=== PATIENT | male | born 1995 | race Two or more races ===

== ENCOUNTER 2020-03-27 15:04 | Emergency (ER) | payer BC ==
[~2020-03-27] VITALS: Ht 170.2 cm; Wt 83.9 kg
--- NOTE | 2020-03-27 15:40 | NUR ---
ED Nurse Note: pt presents to ED with congestion and cough, states that he tested + for COVID-19. pt is noted to be febrile on triage. he is also experiencing loss of taste & smell, no N/V/D at this time
[2020-03-27 15:41] VITALS: BP 136/90
--- NOTE | 2020-03-27 16:13 | Emergency Room Report ---
History of Present Illness General Chief Complaint: Upper Respiratory Illness Source: Patient (Anselmo Harris) Present Illness HPI 24-year-old male who just tested positive for Covid this morning due to exposure to a coworker and has been having loss of smell, cough and congestion, shortness of breath and fever x3 days. Here requesting medication for his symptoms. Denies any headache and dizziness at this time. Complains of few bouts of nonbloody diarrhea. Denies nausea vomiting. Is sitting comfortably with O2 sats being above 97%. Reports that he usually vapes and smokes marijuana however has stopped smoking for the past 3 days. Otherwise does not have any other comorbidities. Denies chest pain shortness of breath at this time. (Anselmo Harris) Allergies: Coded Allergies: No Known Allergies (Unverified , 03/27/20) COVID-19 Screening Contact w/high risk pt: No Experienced COVID-19 symptoms?: No COVID-19 Testing performed CONTACT CENTER ENGINEER: Yes COVID-19 Screening: Positive COVID-19 COVID-19 Testing Source: nasal (Anselmo Harris) Patient History Past Medical History: see triage record Past Surgical History: none Pertinent Family History: none Immunizations: UTD Reviewed Nursing Documentation: PMH: Agreed; PSxH: Agreed (Anselmo Harris) Nursing Documentation-PMH Past Medical History: No Stated History (Anselmo Harris) Review of Systems All Other Systems: negative except mentioned in HPI (Anselmo Harris) Physical Exam Vital Signs Date Time Temp Pulse Resp B/P (MAP) Pulse Ox O2 Delivery O2 Flow Rate FiO2 03/27/20 15:27 100.0 93 18 136/90 (105) 97 Room Air Sp02 EP Interpretation: reviewed, abnormal - elevated temp General Appearance: no apparent distress, alert, GCS 15, non-toxic Head: normocephalic, atraumatic Eyes: bilateral eye normal inspection, bilateral eye PERRL ENT: hearing grossly normal, normal pharynx, no angioedema, normal voice Neck: full range of motion, supple/symm/no masses Respiratory: no wheezing - No audible wheezing, speaking full sentences Cardiovascular #1: regular rate, rhythm, no edema Gastrointestinal: non-distended Musculoskeletal: gait/station normal Neurologic: alert, motor strength/tone normal, oriented x3, sensory intact, responsive, speech normal Psychiatric: judgement/insight normal, memory normal, mood/affect normal, no suicidal/homicidal ideation Lymphatic: no adenopathy (Anselmo Harris) Medical Decision Making PA Attestation All diagnoses and treatment plans were reviewed and discussed with my supervising physician Dr. Espinosa (Anselmo Harris) Diagnostic Impression: Primary Impression: Respiratory tract infection due to COVID-19 virus ER Course 24-year-old male who just tested positive for Covid this morning due to exposure to a coworker and has been having loss of smell, cough and congestion, shortness of breath and fever x3 days. Here requesting medication for his symptoms. Denies any headache and dizziness at this time. Complains of few bouts of nonbloody diarrhea. Denies nausea vomiting. Is sitting comfortably with O2 sats being above 97%. Reports that he usually vapes and smokes marijuana however has stopped smoking for the past 3 days. Otherwise does not have any other comorbidities. Denies chest pain shortness of breath at this time. Ddx considered but are not limited to: bronchitis, PNA, URI viral, bacterial bronchitis, respiratory tract infection due to COVID-19 Vital signs: are WNL, pt. is febrile H&PE are most consistent with: Respiratory tract infection due to COVID-19 ORDERS: Chest x-ray, azithromycin, prednisone, albuterol, Phenergan ED INTERVENTIONS: None required at this time. DISCHARGE: At this time pt. is stable for d/c to home. Will provide printed patient care instructions, and any necessary prescriptions. Care plan and follow up instructions have been discussed with the patient prior to discharge. Patient to self isolate for 14 days, take medication as directed, if worsening symptom return to the emergency room (Anselmo Harris) Chest X-Ray Diagnostic Results Chest X-Ray Diagnostic Results : Chest X-Ray Ordered: Yes # of Views/Limited/Complete: 1 View Indication: Other - Cough EP Interpretation: Yes PA Xray: Interpretation reviewed, by supervising MD, and agrees with findings. Interpretation: no consolidation, no effusion, no pneumothorax Impression: No acute disease Electronically Signed by: Anselmo Benson PA-C (Anselmo Harris) Chest X-Ray Diagnostic Results : Electronically Signed by: P A documentation of Xray reviewed by me and is accurate, Mayito Espinosa MD (Mayito Espinosa MD) Last Vital Signs Date Time Temp Pulse Resp B/P (MAP) Pulse Ox O2 Delivery O2 Flow Rate FiO2 03/27/20 15:41 100.0 89 18 136/90 97 Room Air (Anselmo Harris) Disposition: HOME, SELF-CARE Condition: Stable Scripts Albuterol Sulfate (VENTOLIN HFA) 18 Gm Hfa.aer.ad 2 PUFFS INH EVERY 6 HOURS, #18 GM 0 Refills Prov: Anselmo Harris 03/27/20 Promethazine Hcl (PROMETHAZINE HCL*) 6.25 Mg/5 Ml Syrup 5 ML ORAL Q8H, #120 ML 0 Refills Prov: Anselmo Harirs 03/27/20 Prednisone* (PREDNISONE*) 20 Mg Tablet 40 MG ORAL DAILY for 5 Days, #10 TAB Prov: Anselmo Harris 03/27/20 Azithromycin* (ZITHROMAX*) 250 Mg Tablet 250 MG ORAL DAILY, #6 TAB 0 Refills Take two tables once daily for 1 day, then one tablet once daily for 4 days. Prov: Anselmo Harris 03/27/20 Patient Instructions: Upper Respiratory Infection, Adult Additional Instructions: Take medication as directed, follow-up with your primary care provider, self isolate for 14 days, if worsening symptoms return to the emergency room Anselmo Harris Mar 27, 2020 16:13 Mayito Espinosa MD Mar 28, 2020 04:00
[2020-03-27] MEDS ORDERED: VENTOLIN HFA18 GM INH (16:14)
[2020-03-27] MEDS ORDERED: PROMETHAZI6.25 MG/1 ORAL (16:14)
[2020-03-27] MEDS ORDERED: ZITHROMAX250 MG ORAL (16:14)
[2020-03-27] MEDS ORDERED: PREDNISONE20 MG ORAL (16:14)
[2020-03-27 16:25] VITALS: BP 136/90
--- NOTE | 2020-03-27 16:25 | NUR ---
ER DISCHARGE NOTE: Patient is cleared to be discharged per ERMD, pt is aox4, on room air, with stable vital signs. pt was given dc and prescription instructions, pt was able to verbalize understanding, pt id band removed without complications. pt is able to ambulate with steady gait. pt took all belongings.
--- NOTE | 2020-03-27 17:07 | Diagnostic Imaging Report ---
Indication: Cough Technique: One view of the chest Comparison: none Findings: Lungs and pleural spaces are clear. Heart size is normal. Impression: No acute process
== END 2020-03-27 16:25 | disposition home or self-care (01) ==
LOC: EMR 16:10
DX: U07.1 COVID-19 (principal); J98.8 Other specified respiratory disorders
CPT/HCPCS: 71045; 99283